=== PATIENT | female | born 1995 | race Caucasian/White ===

== ENCOUNTER 2018-10-29 15:45 | Outpatient (CLI) | payer BC ==
--- NOTE | 2018-10-29 16:43 | RAD ---
RIGHT FOOT THREE VIEWS: 10/29/18 HISTORY: Injured at work in February. Two weeks ago the pain came back again. There is no signs of any fracture. Bony alignment appears normal. I do not see any signs for stress r eaction or fracture. IMPRESSION: Negative right foot. POS: [facility]
== END 2018-10-29 15:46 | disposition home or self-care (01) ==
LOC: BICRAD 15:45
PROVIDERS: ATTEND Family Medicine
DX: M79.671 Pain in right foot (principal)